=== PATIENT | female | born 2005 | race Two or more races ===

== ENCOUNTER 2024-12-25 10:33 | Emergency (ER) | payer MEDICAID, SELFPAY ==
[2024-12-25 10:40] VITALS: BP 119/77; PULSE 73; RESP 18; TEMP 36.8; O2SAT 98; BMI 21.1
--- NOTE | 2024-12-25 10:42 | EKG_ITS ---
[facility] Test Date: 2024-12-25 Pat Name: YAEL ESQUIVELDepartment: Room: - Gender: Female Ware Server: : 2005 Requested By: Edgar Jean Order Number: [id number] Reading MD: Edgar Jean Measurements Intervals E[place]ice Rate: 79 P: 71 IN: 132 QRS: 98 QRSD: 96 T: 42 QT: 332 QTc: 383 Interpretive Statements SINUS RHYTHM POSSIBLE LEFT ATRIAL ENLARGEMENT [-0.1mV P-WAVE IN V1/V2] BORDERLINE RIGHT AXIS DEVIATION [QRS AXIS > 90] INCOMPLETE RIGHT BUNDLE BRANCH BLOCK [90+ ms QRS DURATION, TERMINAL R IN V1/V2, 40+ ms S IN I/aVL/V4/V5/V6] NONSPECIFIC T-WAVE ABNORMALITY No previous ECG available for comparison /store/[email or web address]/[id number]
--- NOTE | 2024-12-25 11:21 | PD.EDADULT ---
ED General RME/HPI General Chief complaint: General Adult/Misc Complain Stated complaint: WANTS AN EKG Time Seen by Provider: 12/25/24 10:43 Source: patient Arrival date/time: 12/25/24 10:33 19-year-old female with no known medical history presents to the emergency room with a chief complaint of wanting an EKG for cosmetic procedure. Patient states she needs clearance and then EKG shows that she is able to get this cosmetic procedure and states she went to her primary care provider and they worse an abnormality in her EKG. Patient denies any chest pain or any complaints Mode of arrival: ambulatory Limitations: no limitations Related Data Previous Rx's ?Medication ?Instructions ?Recorded cyclobenzaprine 5 mg tablet 5 mg PO Q8H PRN muscle spasm #14 09/30/23 tabs ibuprofen 800 mg tablet (IBU) 800 mg PO Q8H #20 tabs 09/30/23 Allergies Allergy/AdvReac Type Severity Reaction Status Date / Time No Known Allergies Allergy Verified 12/25/24 10:36 Review of Systems Review of Systems Systems Reviewed: All systems reviewed, normal except as documented Constitutional Constitutional: Reports system reviewed and no additional complaints, except as documented, Denies fatigue, Denies fever(s), Denies headache(s) and Denies weakness Eyes Eyes: Reports system reviewed and no additional complaints, except as documented, Denies blurry vision and Denies change in vision ENT Ears, Nose, Mouth, and Throat: Reports system reviewed and no additional complaints, except as documented, Denies otalgia, Denies headache(s), Denies nasal congestion, Denies throat swelling and Denies vertigo Cardiovascular Cardiovascular: Reports system reviewed and no additional complaints, except as documented, Denies chest pain, Denies dyspnea and Denies dyspnea on exertion Respiratory Respiratory: Reports system reviewed and no additional complaints, except as documented, Denies chest congestion, Denies cough, Denies dyspnea, Denies dyspnea on exertion and Denies wheezing Gastrointestinal Gastrointestinal: Reports system reviewed and no additional complaints, except as documented, Denies abdominal pain, Denies cramping, Denies nausea and Denies vomiting Genitourinary Genitourinary: Reports system reviewed and no additional complaints, except as documented Musculoskeletal Musculoskeletal: Reports system reviewed and no additional complaints, except as documented and Denies back pain Integumentary/Breasts Skin/Breast: Reports system reviewed and no additional complaints, except as documented and Denies wounds Neurologic Neurologic: Reports system reviewed and no additional complaints, except as documented, Denies confusion, Denies headache(s), Denies lack of coordination, Denies vertigo and Denies weakness Psychiatric Psychiatric: Reports system reviewed and no additional complaints, except as documented, Denies anxiety, Denies confusion, Denies depression, Denies paranoia, Denies suicidal ideation and Denies tactile hallucinations Endocrine Endocrine: Reports system reviewed and no additional complaints, except as documented and Denies fatigue Hematologic/Lymphatic Hematologic/Lymphatic: Reports system reviewed and no additional complaints, except as documented and Denies lymphadenopathy Allergic/Immunologic Allergic/Immunologic: Reports system reviewed and no additional complaints, except as documented, Denies throat swelling, Denies urticaria and Denies wheezing ED Exam General Limitations: Present no limitations General appearance: Present alert and in no apparent distress Head Head exam: Present atraumatic Eye Eye exam: Present normal appearance, PERRL and EOMI ENT ENT exam: Present normal exam, normal oropharynx and mucous membranes moist Neck Neck exam: Present normal inspection, full ROM and trachea midline Chest Chest inspection: Present normal inspection and symmetric chest wall rise Respiratory Respiratory exam: Present normal lung sounds bilaterally Cardiovascular Cardiovascular exam: Present regular rate, normal rhythm, normal heart sounds, +S1 and +S2; Absent bradycardia, tachycardia, irregular rhythm, systolic murmur, diastolic murmur, rubs, gallop, clicks, JVD, +S3 or +S4 Abdominal Exam Abdominal exam: Present soft and normal bowel sounds Extremities Exam Extremities exam: Present normal inspection and full ROM Back Exam Back exam: Present normal inspection and full ROM Neurological Exam Neurological exam: Present alert, oriented X3 and CN II-XII intact Psychiatric Psychiatric exam: Present normal affect and normal mood Skin Skin exam: Present warm, dry, intact and normal color Course Quality Measures none Orders Category Date Time Status EKG (ED ONLY) *Do not use* NOW Care 12/25/24 10:42 Completed EKG (ED Only) Stat Exams 12/25/24 10:42 Draft Vital Signs Vital signs: Vital Signs Temperature 98.2 F 12/25/24 10:40 Pulse Rate 73 12/25/24 10:40 Respiratory Rate 18 12/25/24 10:40 Blood Pressure 119/77 12/25/24 10:40 Pulse Oximetry (%) 98 12/25/24 10:40 Oxygen Delivery Method Room Air 12/25/24 10:40 Procedures -ED EKG Interpretation #1: Date of EK12/25/24 Time of EK:22 Rate: 74 Interpretation: Reviewed by me EKG Impression: Normal sinus rhythm Additional EKG comment: EKG shows normal sinus rhythm at 74 bpm MDM Patient data External records reviewed:: [facility] previous records Clinical information provided by:: patient Social determinants that could affect healthcare access:: none Patient has the following chronic illnesses:: No chronic illness How is presenting disease/condition affected by chronic disease/condition?: no chronic disease Evaluation data The following diagnostics were reviewed and interpreted by me:: lab results and radiology exam(s) Lab and/or radiology exams considered but not ordered:: Labs and radiology exams considered and ordered Interpretation Summary: EKG shows normal sinus rhythm at [address] deviation Medications Medications considered but not ordered:: No medication given Medication administrations:: No medication given Consultations Consultation(s) initiated? (list below): No Diagnosis Differential Diagnosis ED Complaint MDM: EKG abnormality/EKG arrhythmia Most likely diagnosis given after review of the tests above:: EKG abnormality Admission Indicated Admission indicated?: not indicated Explain why admission is indicated or not indicated:: N/A Admission Request Was there a request for admission?: No Disposition Plan Disposition Plan: Discharge Discharge Attestation Discharge Attestation: The patient and all family members were given an opportunity to ask questions and understood the discharge instructions. Discharge instructions specifically effects, indications for sooner follow up or return to the emergency department, and the expected course of current diagnosis. Patient condition: Stable Medical Decision Making Differential Diagnosis Differential Diagnosis: EKG abnormality/EKG arrhythmia Discharge Plan Plan Patient Disposition: HOME (Self Care) Disposition Comment: Stable Prescriptions/Referrals Prescriptions/Med Rec: No Action ibuprofen [IBU] 800 mg tablet 800 mg PO Q8H Qty: 20 0RF cyclobenzaprine 5 mg tablet 5 mg PO Q8H PRN (Reason: muscle spasm) Qty: 14 0RF Problem List Clinical Impression: EKG abnormality Patient/Caregiver Discharge Instructions Additional Instructions: Please follow-up with your primary care provider in the next 24 to 48 hours. For any evidence of worsening signs or symptoms return to the emergency room immediately Print Language: [place] Stand Alone Forms: [place] Award Info., Patient Portal Info Letter PA/GRINDER BRAKE LINING Supervising Physician MATEUSZ/GRINDER BRAKE LINING Supervising Physician: Dr. Espinal
== END 2024-12-25 13:21 | disposition home or self-care (01) ==
LOC: SERX 11:16
PROVIDERS: Emergency Provider Emergency Medicine; PCP Family Medicine
DX: R94.31 Abnormal electrocardiogram [ECG] [EKG] (principal); I45.10 Unspecified right bundle-branch block
CPT/HCPCS: 93005; 99283